=== PATIENT | male | born 1965 | race Caucasian/White ===

== ENCOUNTER 2017-02-17 18:42 | Observation (INO) | payer OTHER ==
[2017-02-17] MEDS ORDERED: ASPIRIN 81 MG CHEW PO STA (19:29)
[2017-02-17] MEDS ORDERED: SODIUM CHLORIDE 0.9% 1,000 ML IV STA (19:29)
[2017-02-17] MEDS ORDERED: MAG HYDROX/AL HYDROX/SIMETH 30 ML, HYOSCYAMINE ELIXIR 10 ML, CIMETIDINE HCL 300 MG PO STA ×3 (19:30)
[2017-02-17 19:43] LABS: Basophils % (A) 0 %; CH 30.4; CHCM 33.9; Eosinophils # (A) 0.1 k/uL (0-0.7); Eosinophils % (A) 2 %; HCT 46.2 % (39.0-53.0); HDW 2.41; HGB 15.3 gm/dL (13.0-17.5); Luc # (Auto) 0.14; Luc % (Auto) 2; Lymphocytes # (A) 1.6 k/uL (1.0-4.8); Lymphocytes % (A) 27 %; MCH 29.8 pg (25.0-35.0); MCHC 33.1 g/dL (31.0-37.0); Mean Platelet Volume 6.9; Monocytes # (A) 0.3 k/uL (0-1.0); Monocytes % (A) 4 %; Neutrophils # (A) 3.9 k/uL (1.3-7.7); Neutrophils % (A) 65 %; RBC 5.14 m/uL (4.30-5.90); RDW 13.5 % (11.5-15.5); WBC (Perox) 5.56
--- NOTE | 2017-02-17 19:46 | ED ---
Chest Pain HPI - General Chief Complaint: Chest Pain Stated Complaint: Acid Reflux Time Seen by Provider: 02/17/17 19:25 Source: patient, RN notes reviewed, old records reviewed Mode of arrival: ambulatory Limitations: no limitations - History of Present Illness Initial Comments: This is a 52-year-old male presenting to the ED chief complaint of epigastric and left-sided chest pain for the past day. Patient reports he relates this to Acid reflux. Patient reports that he took some Rolaids and had some relief, but it continues patient is concerned there is a cardiac reason for chest pain. He reports he did feel somewhat lightheaded today . Patient reports his pain is currently a 2 out of 10. Patient denies any shortness of breath, peripheral paresthesias, or diaphoresis with these chest pains. Patient states he has no abdominal pain, vomiting, or difficulty with bowel movements or urination. Patient denies any previous cardiac history, had a stress test done one year ago and was negative. Patient is a previous smoker. - Related Data Home Medications Medication Instructions Recorded Confirmed No Known Home Medications [No 02/17/17 02/17/17 Known Home Medications] Allergies Allergy/AdvReac Type Severity Reaction Status Date / Time No Known Allergies Allergy Verified 02/17/17 19:50 Review of Systems ROS Statement: Those systems with pertinent positive or pertinent negative responses have been documented in the HPI. ROS Other: All systems not noted in ROS Statement are negative. EKG Findings - EKG Comments: EKG Findings:: EKG shows normal sinus rhythm. With occasional PVCs. Ventricular rate of 100 bpm. Verbal 140 ms. QRS duration 112 ms. No evidence of ST elevation or T-wave inversion. No evidence of atrial or ventricular arrhythmias. Past Medical History Past Medical History: No Reported History History of Any Multi-Drug Resistant Organisms: None Reported Past Surgical History: Tonsillectomy Past Psychological History: No Psychological Hx Reported Smoking Status: Never smoker Past Alcohol Use History: Occasional Past Drug Use History: None Reported - Past Family History Father Additional Family Medical History / Comment(s): valve replaced Mother Family Medical History: Coronary Artery Disease (CAD) Brother(s) Family Medical History: Coronary Artery Disease (CAD) Additional Family Medical History / Comment(s): stent in 40's General Exam - General Exam Comments Initial Comments: Pleasant 52-year-old male. No acute distress. Limitations: no limitations General appearance: alert, in no apparent distress Head exam: Present: atraumatic, normocephalic, normal inspection Eye exam: Present: normal appearance, PERRL, EOMI. Absent: scleral icterus, conjunctival injection, periorbital swelling ENT exam: Present: normal exam, mucous membranes moist Neck exam: Present: normal inspection. Absent: tenderness, meningismus, lymphadenopathy Respiratory exam: Present: normal lung sounds bilaterally. Absent: respiratory distress, wheezes, rales, rhonchi, stridor Cardiovascular Exam: Present: regular rate, normal rhythm, normal heart sounds. Absent: systolic murmur, diastolic murmur, rubs, gallop, clicks GI/Abdominal exam: Present: soft, normal bowel sounds. Absent: distended, tenderness, guarding, rebound, rigid Extremities exam: Present: normal inspection, full ROM, normal capillary refill. Absent: tenderness, pedal edema, joint swelling, calf tenderness Back exam: Present: normal inspection Neurological exam: Present: alert, oriented X3, CN II-XII intact Psychiatric exam: Present: normal affect, normal mood Skin exam: Present: warm, dry, intact, normal color. Absent: rash Course Vital Signs 02/17/17 02/17/17 02/17/17 18:50 19:35 20:27 Temperature 98.3 F 98.0 F Pulse Rate 100 88 84 Respiratory 20 16 17 Rate Blood Pressure 153/84 154/96 148/92 O2 Sat by Pulse 99 98 98 Oximetry 02/17/17 02/17/17 02/17/17 21:27 21:57 22:08 Temperature Pulse Rate 88 80 82 Respiratory 16 16 15 Rate Blood Pressure 165/80 153/108 137/87 O2 Sat by Pulse 97 98 98 Oximetry 02/17/17 22:32 Temperature 97.9 F Pulse Rate 73 Respiratory 16 Rate Blood Pressure 157/95 O2 Sat by Pulse 98 Oximetry Chest Pain [facility] This is a 52-year-old male presenting to the ED chief complaint of epigastric and left-sided chest pain for the past day. Patient reports he relates this to Acid reflux. Patient reports that he took some Rolaids and had some relief, but it continues patient is concerned there is a cardiac reason for chest pain. He reports he did feel somewhat lightheaded today . Patient reports his pain is currently a 2 out of 10. Patient denies any shortness of breath, peripheral paresthesias, or diaphoresis with these chest pains. His EKG was reviewed and negative for any ischemic changes. Patient was given a GI cocktail. Patient reports that his chest pain continues to persist. He states that it seems to radiate is more deeper in the chest going to his back. Patient cardiac enzymes are also negative. Patient's chest x-ray was reviewed and negative for any acute process. Discussed this case with Dr. Marshall. Given patient's age and little improvement with GI cocktail with regard is best to monitor the patient and repeat cardiac enzymes. Patient was given 2 mg of morphine at this time as well as aspirin. Patient states continues to report his pain is a 2 or 3 out of 10. Patient agrees to the admission. Patient understands treatment plan. Disposition Clinical Impression: Chest pain, Epigastric pain, Back pain Disposition: ADMITTED IP TO THIS [facility] Condition: Good Time of Disposition: 21:47
[2017-02-17 19:54] LABS: ALT 45 U/L (21-72); AST 26 U/L (17-59); Alkaline Phosphatase 64 U/L (38-126); Anion Gap 9 mmol/L; Blood Urea Nitrogen 18 mg/dL (9-20); Calcium 10.1 mg/dL (8.4-10.2); Carbon Dioxide 26 mmol/L (22-30); Chloride 104 mmol/L (98-107); Glucose 97 mg/dL (74-99); Magnesium 1.8 mg/dL (1.6-2.3); Non-African American GFR(MDRD) >60 (>60 ml/min/1.73 sqM); Potassium 3.9 mmol/L (3.5-5.1); Sodium 139 mmol/L (137-145); Total Bilirubin 0.8 mg/dL (0.2-1.3); Total Protein 6.9 g/dL (6.3-8.2)
[2017-02-17 19:57] LABS: Partial Thromboplastin Time 24.4 sec (22.0-30.0); Prothrombin Time 10.3 sec (9.0-12.0)
--- NOTE | 2017-02-17 19:57 | XR ---
EXAMINATION TYPE: XR chest 2V DATE OF EXAM: 02/17/2017 COMPARISON: NONE HISTORY: Chest pressure and burning TECHNIQUE: Frontal and lateral views of the chest are obtained. FINDINGS: There is no heart failure nor confluent pneumonic infiltrate. There are no hilar masses. T here is no pleural effusion. There are chest leads. Bony thorax is intact. IMPRESSION: No active cardiopulmonary disease.
[2017-02-17 20:00] LABS: Creatine Kinase 61 U/L (55-170)
[2017-02-17 20:13] LABS: Creatine Kinase MB 1.1 ng/mL (0.0-2.4); Troponin I <0.012 ng/mL (0.000-0.034)
[2017-02-17 21:33] LABS: Amylase 74 U/L (30-110)
[2017-02-17] MEDS ORDERED: MORPHINE SULFATE 2 MG/ML SYRINGE IVP ONE (21:44)
[2017-02-17] MEDS ORDERED: ACETAMINOPHEN TAB 325 MG TAB PO PRN (21:47)
[2017-02-17] MEDS ORDERED: ONDANSETRON 4 MG/2 ML VIAL IVP PRN (21:47)
[2017-02-17] MEDS ORDERED: NALOXONE 0.4 MG/ML 1 ML VIAL IV PRN (21:47)
[2017-02-17] MEDS ORDERED: ETODOLAC 400 MG TAB PO PRN (21:47)
[2017-02-17] MEDS ORDERED: MORPHINE SULFATE 4 MG/ML SYRINGE IV PRN (21:47)
[2017-02-17] MEDS ORDERED: NITROGLYCERIN SL TABS 0.4 MG TAB SUBLINGUAL PRN (21:51)
[2017-02-17] MEDS: SODIUM CHLORIDE 0.9% 1,000 ML IV SCH (22:28)
[2017-02-17 23:13] VITALS: BMI 32.3
[2017-02-18 01:41] LABS: Creatine Kinase 47 U/L (55-170)
[2017-02-18 01:54] LABS: Creatine Kinase MB 0.9 ng/mL (0.0-2.4); Troponin I <0.012 ng/mL (0.000-0.034)
[2017-02-18] MEDS ORDERED: PANTOPRAZOLE 40 MG TABLET PO SCH (07:30)
[2017-02-18 07:39] LABS: Cholesterol 223 mg/dL (<200); HDL Cholesterol 74 mg/dL (40-60); Triglycerides 111 mg/dL (<150)
[2017-02-18 08:11] VITALS: RESP 14
[2017-02-18] MEDS ORDERED: ASPIRIN 325 MG TAB PO SCH (09:00)
[2017-02-18] MEDS ORDERED: FAMOTIDINE 20 MG TAB PO SCH (09:00)
[2017-02-18] MEDS ORDERED: ASPIRIN 81 MG CHEW PO SCH (09:00)
--- NOTE | 2017-02-18 09:52 | CONS ---
DATE OF CONSULTATION: Mr. Hood is a 52-year-old male with no prior documented history of coronary artery disease, who presented with chest discomfort. The discomfort started yesterday in the epigastrium radiating up to the chest, appears to be gastroesophageal reflux in origin. The patient has prior history of gastroesophageal reflux symptoms but has not been persistent. The pain yesterday persisted throughout the day. Because of that, he came into the emergency room and subsequently admitted. He is average in his exercise tolerance, has no exertional chest pain. He denies any dizziness or palpitation. No syncope. No PND, orthopnea, or peripheral edema. His coronary risk factors are remarkable for prior history of smoking, although he is not on medication this time. He is nondiabetic, nonsmoker. His lipid profile is not available. Medications none at home. REVIEW OF SYSTEMS: RESPIRATORY SYSTEM: No recent wheezing. No cough. No history of obstructive lung disease. GI SYSTEM: No recent GI bleeding. No peptic ulcer disease. The patient has a history of reflux. SYSTEM: No dysuria or hematuria. NERVOUS SYSTEM: No stroke or seizure. SOCIAL HISTORY: He drinks alcohol 3 to 4 times a week. Drinks 2 cups of coffee a day. PHYSICAL EXAMINATION: A 52-year-old male, alert, oriented, in no apparent distress. Blood pressure 138/90 with the heart rate in the 70s. HEAD: Normocephalic. EYES: Sclerae anicteric. NECK: Good upstroke. No bruit. No jugular venous distention. LUNGS: Clear to auscultation. HEART: Regular rate rhythm. S1, S2, no S3, no S4, no murmur or rub. ABDOMEN: Soft, nontender, positive bowel sounds. No organomegaly. EXTREMITIES: No edema. Intact distal pulses. Lab data revealed troponin less than 0.012 for 2 samples. BUN and creatinine of 18 and 1.2. Potassium 3.9. Hemoglobin of 15.3. EKG revealed a sinus mechanism, rate of 100, occasional PVCs, borderline left axis deviation. The chest x-ray shows no acute changes. IMPRESSION: 1. Chest discomfort, appears to be gastrointestinal in origin. No clear evidence to suggest cardiac etiology. 2. History of hypertension, not treated at this time. RECOMMENDATIONS: From the cardiac standpoint, I will proceed with a stress echocardiogram. If there is no evidence of abnormality then no further cardiac workup will be needed. The patient will benefit from a proton pump inhibitor. Thank you for this consult. We will follow with you.
[2017-02-18 12:26] VITALS: BP 141/88; PULSE 82; TEMP 97.7
--- NOTE | 2017-02-18 12:41 | ECHOS ---
DATE OF SERVICE: 02/18/2017 AGE: 52Y SEX: M HT: 72" WT: 238 lbs. Protocol Saroj: X Others: Stress Echo Stage: III Dur. of Exercise: 9 minutes *Heart Rate Blood Pressure *Rest: 84 Rest: 109/89 * *Max. Achieved: 146 Maximum BP: 134/82 85% PMHR: 143 100% PMHR: 168 *METS: 9.6 INDICATIONS: Chest pain. MEDICATIONS: Patient was exercised for a total period of 9 minutes. Peak heart rate of 146 was achieved. Maximum blood pressure of 134/82 mmHg was noted. Resting EKG shows normal sinus rhythm with normal CO interval and QRS duration and normal ST-T waves. No ST segment depression suggestive of ischemia was noted. Occasional PVCs were noted. The baseline echocardiographic images reveal a normal left ventricular chamber size with normal left ventricular systolic function. In the immediate postexercise period, normal increase in the wall thickness and contractility is noted. FINAL IMPRESSION: This stress echocardiographic study is negative for stress-induced ischemia. EKG portion of the stress test is not suggestive of ischemia. Patient's exercise tolerance is normal.
[2017-02-18] MEDS: SODIUM CHLORIDE 0.9% 1,000 ML IV SCH ×2 (14:13→15:10)
--- NOTE | 2017-02-20 09:40 | HP ---
DATE OF ADMISSION: DATE OF SERVICE: 02/18/2017 CHIEF COMPLAINT: Chest pain. HISTORY OF PRESENT ILLNESS: This 52-year-old gentleman with a past medical history of multiple medical problems including history of idiopathic constipation, history of stress test in [address] Doe in the outpatient setting admitted with chest pain to [facility]. The pain was mainly left-sided and patient also reported related to acid reflux also. The patient took some Rolaids with some relief. Because of lack of improvement, the patient came to [facility] for further evaluation and treatment. There is no specific symptoms like palpitations, sweating or shortness of breath or radiation of pain aggravated factors other than mentioned earlier The cardiology evaluation is in progress. No history of fever or rigors. No history of any hematochezia or melena at this time. PAST MEDICAL HISTORY: History of idiopathic constipation, tonsillectomy. Medications prior to admission. reviewed. ALLERGIES: None. FAMILY HISTORY: History of coronary artery disease and valve replaced in the family. SOCIAL HISTORY: No history of smoking. Occasional alcohol intake. REVIEW OF SYSTEMS: ENT: No diminishing hearing. No diminished vision. CARDIOVASCULAR: As mentioned earlier. RESPIRATORY: As mentioned earlier. GI: As mentioned earlier. : No dysuria. NERVOUS SYSTEM: No numbness or weakness. ALLERGIES/IMMUNOLOGY: No history of asthma or hayfever. MUSCULOSKELETAL; As mentioned earlier. HEMATOLOGY/ONCOLOGY: No history of anemia. ENDOCRINE: No history of diabetes mellitus or hypothyroidism. CONSTITUTIONAL: As mentioned earlier. DERMATOLOGY: Negative. RHEUMATOLOGY: Negative. PSYCHIATRY: As mentioned earlier. PHYSICAL EXAMINATION: The patient is alert and oriented x3. Pulse is 75, blood pressure 139/88, respirations 14, temperature 97.4, pulse ox 95% on room air. HEENT: Conjunctivae normal. NECK: No jugular venous distention. CARDIOVASCULAR: S1 and S2, muffled. RESPIRATORY: Breath sounds diminished at the bases. No rhonchi, no crackles. ABDOMEN: Soft, nontender. No mass palpable. Obese. LEGS: No edema, no swelling. NERVOUS SYSTEM: Higher function as mentioned. Moves all 4 limbs. No focal motor or sensory deficits. LYMPHATICS: No lymphadenopathy of neck, axillae or groin. SKIN: No ulcers, rashes or bleeding. LABS: CBC, BMP within normal limits. Cholesterol is 223 and LDL is 127. ASSESSMENT: 1. Chest pain, possible unstable angina possible gastroesophageal reflux disease. 2. Hyperlipidemia. 3. Obesity with body mass index of 32.3. 4. History of idiopathic constipation. 5. History of tonsillectomy. RECOMMENDATIONS AND DISCUSSION: This 52-year-old gentleman presented with multiple complex medical issues. Will monitor the patient closely. Rule out myocardial infarction. Closely follow with Cardiology. Otherwise, also recommend continue with current medications. Continue with ruling out myocardial infarction. Stress test. Guarded prognosis. Further recommendations to follow. Prognosis guarded. Discussed with patient, understands and agrees. VIVIANE
--- NOTE | 2017-02-20 15:41 | DS ---
DATE OF ADMISSION: 02/17/2017 DATE OF DISCHARGE: 02/18/2017 FINAL DIAGNOSES: 1. Chest pain; possibly gastroesophageal reflux disease. Myocardial infarction was ruled out. 2. Negative stress echocardiogram. 3. Hyperlipidemia. 4. Obesity with body mass index of 32.3. 5. History of idiopathic constipation. HISTORY OF PRESENT ILLNESS: This 52-year-old gentleman was admitted with chest pain. Myocardial infarction was ruled out. Cardiology performed a stress test, which was negative. Cardiology cleared the patient for discharge. On exam, vitals are stable. CARDIOVASCULAR SYSTEM: S1, S2 muffled. ABDOMEN: Soft. NERVOUS SYSTEM: No focal deficit. DISCHARGE ADVICE AND MEDICATIONS: 1. Diet is cardiac, low cholesterol, low fat. 2. Activity limited until followup. 3. Follow up in Dr. Doe in 2 to 3 days. 4. Follow up with Cardiology as recommended. 5. Protonix 40 mg daily. 6. Please repeat lipid profile in the outpatient setting after low-cholesterol diet.
== END 2017-02-18 15:10 | disposition home or self-care (01) ==
LOC: EC 18:42 → 3OBS 22:00
PROVIDERS: ADMIT Hospitalist; ATTEND Hospitalist
DX: R07.89 Other chest pain (principal); R10.13 Epigastric pain; E78.5 Hyperlipidemia, unspecified; E66.9 Obesity, unspecified; Z68.32 Body mass index [BMI] 32.0-32.9, adult; K59.00 Constipation, unspecified; Z87.891 Personal history of nicotine dependence; Z82.49 Family history of ischemic heart disease and other diseases of the circulatory system
CPT/HCPCS: 36415; 93005; 93017; 93350; 85379; 83880; 80061; 80053; 82150; 82550 ×2; 82553 ×2; 83690; 83735; 84484 ×2; 85025; 85610; 85730; 71020; 99285; 96361; 96374; G0378 ×2; J2270